=== PATIENT | male | born 1970 | race Caucasian/White ===

== ENCOUNTER 2020-08-04 00:49 | Emergency (ER) | payer SELFPAY ==
[2020-08-04] MEDS ORDERED: LACTATED RINGERS SOLUTION 1000 ML INFUS.BAG IV ONE (01:17)
[2020-08-04 01:43] VITALS: BMI 26.6
[2020-08-04 02:02] LABS: BASO % 0.8 % (0-2.0); HEMATOCRIT 38.1 % (35.4-49); HEMOGLOBIN 12.7 GM/dL (11.7-16.9); LYMPH % 22.3 % (8-40); MCHC 33.3 g/dl (32.0-35.9); MONO % 9.8 % (3.8-10.2); NEUT % 60.1 % (42.8-82.8); PLATELET COUNT 229 10^3/uL (134-434); RDW 14.3 % (11.9-15.9); WHITE BLOOD COUNT 7.1 K/mm3 (4.0-10.0)
[2020-08-04 02:15] LABS: CHLORIDE 103 mmol/L (98-107); SODIUM 138 mmol/L (136-145)
[2020-08-04 02:16] VITALS: BP 112/80; PULSE 92
[2020-08-04 02:17] LABS: ALBUMIN 3.9 g/dl (3.4-5.0)
[2020-08-04 02:18] LABS: ANION GAP 4 MMOL/L (8-16); BLOOD UREA NITROGEN 19.9 mg/dL (7-18); CO2 30 mmol/L (21-32)
[2020-08-04 02:20] LABS: SGPT/ALT 27 U/L (13-61)
[2020-08-04 02:21] LABS: SGOT/AST 29 U/L (15-37)
[2020-08-04 02:22] LABS: BILIRUBIN,TOTAL 0.2 mg/dL (0.2-1); TOT PROT 7.4 g/dl (6.4-8.2)
[2020-08-04 02:24] LABS: ALK PHOS 150 U/L (45-117)
[2020-08-04 02:49] VITALS: TEMP 97.5
[2020-08-04 02:49] LABS: CREATININE 1.1 mg/dL (0.55-1.3); GLUCOSE,RANDOM 119 mg/dL (74-106)
== END 2020-08-04 03:21 | disposition left against medical advice (07) ==
LOC: JER 00:49
DX: R00.2 Palpitations (principal)
CPT/HCPCS: 36415; 71045-TC-FY; 80053; 80307; 84439; 84443; 84484; 85025; 93005; 93010; 99284-25

== ENCOUNTER 2021-09-29 09:42 | Emergency (ER) | payer SELFPAY ==
[2021-09-29 10:00] VITALS: BP 132/90; PULSE 105; RESP 18; TEMP 98; BMI 25.8
[2021-09-29 10:58] LABS: BASO % 0.6 % (0-2.0); EOS % 1.6 % (0-4.5); HEMATOCRIT 40.4 % (35.4-49); HEMOGLOBIN 13.4 GM/dL (11.7-16.9); LYMPH % 9.4 % (8-40); MCH 26.8 pg (25.7-33.7); MEAN CELL VOLUME 81.2 fl (80-96); MEAN PLT VOLUME 7.3 fl (7.5-11.1); MONO % 10.2 % (3.8-10.2); NEUT % 78.2 % (42.8-82.8); PLATELET COUNT 240 10^3/uL (134-434); RBC 4.98 M/mm3 (4.00-5.60); RDW 14.2 % (11.9-15.9); WHITE BLOOD COUNT 8.8 K/mm3 (4.0-10.0)
[2021-09-29 11:21] LABS: ALBUMIN 4.1 g/dl (3.4-5.0); BLOOD UREA NITROGEN 11.8 mg/dL (7-18); CALCIUM 9.6 mg/dL (8.5-10.1)
[2021-09-29 11:26] LABS: BILIRUBIN,TOTAL 0.7 mg/dL (0.2-1); TOT PROT 7.8 g/dl (6.4-8.2)
[2021-09-29] MEDS ORDERED: KETOROLAC TROMETHAMINE 30 MG/1 ML VIAL IVPUSH ONE (13:01)
[2021-09-29] MEDS ORDERED: ACETAMINOPHEN 500 MG TABLET (FP) PO ONE (13:01)
[2021-09-29] MEDS ORDERED: KETOROLAC TROMETHAMINE 30 MG/1 ML VIAL ONE (13:02)
[2021-09-29] MEDS ORDERED: ACETAMINOPHEN 500 MG TABLET (FP) ONE (13:02)
== END 2021-09-29 13:08 | disposition home or self-care (01) ==
LOC: JERFT 09:42
PROC: 3E0333Z Introduction of Anti-inflammatory into Peripheral Vein, Percutaneous Approach (ICD-10-PCS; principal; 2021-09-29)
DX: L03.211 Cellulitis of face (principal)
CPT/HCPCS: 36415; 70487-TC; 80053; 85025; 99285-25

== ENCOUNTER 2022-10-20 18:45 | Emergency (ER) | payer SELFPAY ==
[2022-10-20 19:13] VITALS: BP 165/96; PULSE 85; RESP 18; TEMP 98.5; BMI 31.6
[2022-10-20] MEDS ORDERED: KETOROLAC TROMETHAMINE 30 MG/1 ML VIAL IM ONE (22:02)
[2022-10-20] MEDS ORDERED: AMOX TR/POT CLAV 875MG/125MG TABLETS (FP) PO ONE (22:02)
[2022-10-20] MEDS ORDERED: KETOROLAC TROMETHAMINE 30 MG/1 ML VIAL ONE (22:04)
[2022-10-20] MEDS ORDERED: AMOX TR/POT CLAV 875MG/125MG TABLETS (FP) ONE (22:04)
== END 2022-10-20 22:11 | disposition home or self-care (01) ==
LOC: JERFT 18:45
PROC: 3E0233Z Introduction of Anti-inflammatory into Muscle, Percutaneous Approach (ICD-10-PCS; principal; 2022-10-20)
DX: K04.7 Periapical abscess without sinus (principal); S02.5XXA Fracture of tooth (traumatic), initial encounter for closed fracture; X58.XXXA Exposure to other specified factors, initial encounter; Y93.9 Activity, unspecified; Y92.9 Unspecified place or not applicable
CPT/HCPCS: 99284-25